=== PATIENT | female | born 1950 ===

== ENCOUNTER 2017-09-07 11:11 | Outpatient (CLI) | payer OTHER, MEDICARE | END 2017-09-07 11:12 | disposition home or self-care (01) | LOC: BICMAMMO 11:11 | PROVIDERS: ATTEND Physician Assistant | DX: Z12.31 Encounter for screening mammogram for malignant neoplasm of breast (principal); Z80.3 Family history of malignant neoplasm of breast | CPT/HCPCS: 77063; 77067 ==

== ENCOUNTER 2018-11-01 07:43 | Outpatient (CLI) | payer OTHER, MEDICARE ==
--- NOTE | 2018-11-11 13:18 | MMO ---
Bilateral MAMMO Bilat Screen [facility]. CLINICAL HISTORY: Patient is 68 years old and is seen for screening. The patient has the following family history of breast cancer: sister. The patient has no personal history of cancer. VIEWS: The views performed were: bilateral craniocaudal with tomosynthesis and bilateral mediolateral oblique with tomosynthesis. FILMS COMPARED: The present examination has been compared to a prior imaging study performed at [facility] on 09/07/2017. MAMMOGRAM FINDINGS: There are scattered fibroglandular densities. There are no suspicious masses, calcifications or areas of architectural distortion. IMPRESSION: THERE IS NO MAMMOGRAPHIC EVIDENCE OF MALIGNANCY. A ROUTINE FOLLOW-UP MAMMOGRAM IN 1 YEAR IS RECOMMENDED. THE RESULTS OF THIS EXAM WERE SENT TO THE PATIENT. ACR BI-RADS Category 1 - Negative MAMMOGRAPHY NOTE: 1. A negative mammogram report should not delay a biopsy if a dominant of clinically suspicious mass is present. 2. Approximately 10% to 15% of breast cancers are not detected by mammography. 3. Adenosis and dense breasts may obscure an underlying neoplasm.
== END 2018-11-01 07:44 | disposition home or self-care (01) ==
LOC: BICMAMMO 07:43
PROVIDERS: ATTEND Nurse Practitioner Family
DX: Z12.31 Encounter for screening mammogram for malignant neoplasm of breast (principal); Z80.3 Family history of malignant neoplasm of breast
CPT/HCPCS: 77063; 77067

== ENCOUNTER 2019-01-14 14:21 | Outpatient (CLI) | payer OTHER, MEDICARE ==
--- NOTE | 2019-01-14 14:39 | RAD ---
LUMBAR SPINE THREE VIEWS: 01/14/19 HISTORY: Low back pain. FINDINGS: Multilevel degenerative changes are seen with levoscoliosis of the lumbar spine. No compression fract ure is seen. There is minimal anterolisthesis of L4 over L5 and minimal retrolisthesis of L3 over L4 vertebral bodies. IMPRESSION: Lumbar spondylosis with levoscoliosis. POS: [facility]
== END 2019-01-14 14:22 | disposition home or self-care (01) ==
LOC: RAD-FRANK 14:21
PROVIDERS: ATTEND Nurse Practitioner Family
DX: M54.5 Low back pain (principal); M41.9 Scoliosis, unspecified; M47.816 Spondylosis without myelopathy or radiculopathy, lumbar region
CPT/HCPCS: 72100

== ENCOUNTER 2019-09-18 16:05 | Outpatient (CLI) | payer OTHER, MEDICARE ==
--- NOTE | 2019-09-18 16:25 | RAD ---
TWO VIEW CHEST: 09/18/19 HISTORY: Chest pain. Comparison made to a film from 2009. FINDINGS: There is linear opacity extending from the left suprahilar region into the left apex which is new. Fi ndings probably represent linear atelectasis. No evidence of confluent infiltrate or vascular congestion. No effusion. The heart and mediastinum u nremarkable. Scoliotic curvature of the thoracic spine again noted. IMPRESSION: CT density in the left upper lung suggests atelectasis. Follow-up is recommended. POS: [facility]
--- NOTE | 2019-09-18 16:36 | RAD ---
LUMBAR SPINE THREE VIEWS: HISTORY: Back pain. COMPARISON: Lumbar films from 01/14/2019. FINDINGS: Scoliotic curvature again noted with convexity of the lumbar spine to the left. Prominent hypertrophi c degenerative changes with spurring and disk narrowing are again noted. Mild anterior wedging of L1 and L2 appear stable. There is disk narrowing at all levels. Mild posterolisthesis at L3-L4 again not ed and stable. Anterolisthesis at L4-L5 and L5-S1 appears stable. Facet hypertrophy is again noted an d is prominent. IMPRESSION: Moderate to severe degenerative changes of the lumbar spine with scoliotic curvature again noted. Fin dings appear stable from prior examination. POS: [facility]
== END 2019-09-18 16:06 | disposition home or self-care (01) ==
LOC: RAD-FRANK 16:05
PROVIDERS: ATTEND Nurse Practitioner Family
DX: M41.26 Other idiopathic scoliosis, lumbar region (principal); R07.82 Intercostal pain; M47.816 Spondylosis without myelopathy or radiculopathy, lumbar region; R91.8 Other nonspecific abnormal finding of lung field
CPT/HCPCS: 71046; 72100